=== PATIENT | male | born 2000 | race Caucasian/White ===

== ENCOUNTER 2023-05-28 18:28 | Inpatient (IN) | payer OTHER ==
[~2023-05-28] VITALS: Ht 175.3 cm; Wt 75.9 kg
[2023-05-28 19:59] LABS: BASOPHILS % (AUTO) 0.7 % (0.0-2.0); EOSINOPHILS % (AUTO) 2.7 % (1.0-6.0); HEMATOCRIT 44.9 % (41-53); LYMPHOCYTES # (AUTO) 2.2 K/uL (1.0-4.8); LYMPHOCYTES % (AUTO) 25.9 % (22.0-44.0); MEAN CORPUSCULAR HEMOGLOBIN 32.1 pg (26.0-34.0); MEAN CORPUSCULAR HGB CONC 33.4 G/dL (31.0-37.0); MEAN CORPUSCULAR VOLUME 96 fL (80-100); MONOCYTES # (AUTO) 0.9 K/uL (0.1-1.0); MONOCYTES % (AUTO) 10.2 % (2.0-9.0); NEUTROPHILS # (AUTO) 5.1 K/uL (1.8-7.7); NEUTROPHILS % (AUTO) 60.5 % (40.0-70.0); PLATELET COUNT (AUTO) 240 K/uL (150-450); RED BLOOD CELL COUNT(AUTO) 4.67 MIL/uL (4.50-5.90); RED CELL DISTRIBUTION WIDTH 13.1 % (11.5-14.5)
[2023-05-28 20:10] LABS: ANION GAP -4 mmol/L (8-16); CALCIUM, TOTAL 9.3 mg/dL (8.8-10.5); CARBON DIOXIDE 33 mmol/L (22-29); CHLORIDE 102 mmol/L (98-107); CREATININE 0.94 mg/dL (0.60-1.30); GLOMERULAR FILTR. RATE CALC > 60 mL/min (>60); GLUCOSE,RANDOM 96 mg/dL (70-110); POTASSIUM 4.3 mmol/L (3.5-5.1); SODIUM SERUM 131 mmol/L (136-145)
[2023-05-28 20:15] LABS: ALANINE AMINOTRANSFERASE 34 U/L (12-78); ALBUMIN 4.2 g/dL (3.4-5.0); ALKALINE PHOSPHATASE 76 U/L (46-116); ASPARTATE AMINOTRANSFERASE 16 U/L (15-37); BILIRUBIN,TOTAL 0.7 mg/dL (0.1-1.0); TOTAL PROTEIN, SERUM 7.3 g/dL (6.4-8.2)
[2023-05-28 20:18] LABS: AMPHET/METH SCREEN,URINE NEGATIVE (NEGATIVE); BARBITURATE SCREEN, URINE NEGATIVE (NEGATIVE); BENZODIAZEPINES SCREEN,URINE NEGATIVE (NEGATIVE); CANNABINOID SCREEN,URINE NEGATIVE (NEGATIVE); COCAINE SCREEN,URINE NEGATIVE (NEGATIVE); METHADONE SCREEN, URINE NEGATIVE (NEGATIVE); OPIATE SCREEN,URINE NEGATIVE (NEGATIVE); PHENCYCLIDINE SCREEN,URINE NEGATIVE (NEGATIVE)
[2023-05-28 20:28] LABS: COVID AG,FIA SOURCE NASOPHARYNGEAL
[2023-05-28] MEDS ORDERED: LORazepam 2 MG TABLET PO PRN (21:00)
[2023-05-29 03:50] VITALS: BP 116/70; PULSE 75; RESP 18; TEMP 98.2; O2SAT 99
[2023-05-29] MEDS ORDERED: MAGNESIUM HYDROXIDE SUSPENSION 30 ML UDCUP PO PRN (06:15)
[2023-05-29] MEDS ORDERED: LOPERAMIDE HCL 2 MG CAPSULE PO PRN (06:15)
[2023-05-29] MEDS ORDERED: MAG HYDROX/AL HYDROX/SIMETH ES 30 ML SUSPENSION UDCUP PO PRN (06:15)
[2023-05-29] MEDS ORDERED: PETROLATUM,WHITE 28 GM JELLY TP PRN (06:15)
[2023-05-29] MEDS ORDERED: DOCUSATE SODIUM 100 MG CAPSULE PO PRN (06:15)
[2023-05-29] MEDS ORDERED: IBUPROFEN 400 MG TABLET PO PRN (06:15)
[2023-05-29] MEDS ORDERED: GuaiFENesin/D-METHORPHAN [SUGAR-FREE] 200-20MG/10 ML SYRUP UDCUP PO PRN (06:15)
[2023-05-29] MEDS ORDERED: ONDANSETRON HCL 4 MG TABLET PO PRN (06:15)
[2023-05-29] MEDS ORDERED: NICOTINE 14 MG/24 HOUR PATCH TD PRN (06:15)
[2023-05-29] MEDS ORDERED: ALBUTEROL SULFATE HFA 90 MCG/PUFF 8 GM INHALER IH PRN (06:15)
[2023-05-29] MEDS ORDERED: ACETAMINOPHEN 325 MG TABLET PO PRN (06:15)
[2023-05-29] MEDS ORDERED: CloNIDine HCL 0.1 MG TABLET PO PRN (06:15)
[2023-05-29] MEDS ORDERED: SERTRALINE HCL 50 MG TABLET PO ONE (09:15)
[2023-05-29] MEDS: NALTREXONE HCL 50 MG TABLET PO SCH (09:47)
[2023-05-29] MEDS: ClonazePAM 0.5 MG TABLET PO SCH ×2 (09:47→17:14)
[2023-05-29 09:50] VITALS: BP 127/72; PULSE 63; RESP 17; TEMP 97.7; O2SAT 97
[2023-05-29] MEDS: METHYLPHENIDATE HCL 10 MG TABLET PO SCH (17:14)
[2023-05-29 17:17] VITALS: BP 124/69; PULSE 78; RESP 18; O2SAT 97
[2023-05-29] MEDS: ZOLPIDEM TARTRATE 10 MG TABLET PO PRN (20:45)
[2023-05-29] MEDS ORDERED: CloZAPine 25 MG TABLET PO SCH (21:00)
[2023-05-29 21:35] VITALS: BP 144/76; PULSE 93; RESP 18; TEMP 98; O2SAT 99
[2023-05-30] MEDS: METHYLPHENIDATE HCL 10 MG TABLET PO SCH ×2 (06:42→15:53)
[2023-05-30 08:09] LABS: HEMOGLOBIN A1C 4.9 % (3.8-5.6)
[2023-05-30 08:18] LABS: CHOL/HDL RATIO 2.2 (4.2-7.3); THYROID STIMULATING HORMONE 1.49 uIU/mL (0.36-3.74)
[2023-05-30] MEDS: NALTREXONE HCL 50 MG TABLET PO SCH (09:09)
[2023-05-30] MEDS: ClonazePAM 0.5 MG TABLET PO SCH ×2 (09:09→15:53)
[2023-05-30 13:55] VITALS: BP 122/70; PULSE 74; RESP 18; TEMP 97.7; O2SAT 100
[2023-05-30] MEDS: HALOPERIDOL 5 MG TABLET PO PRN (15:53)
[2023-05-30 20:30] VITALS: BP 111/67; PULSE 67; RESP 18; TEMP 98.1; O2SAT 99
[2023-05-30] MEDS ORDERED: CloZAPine 25 MG TABLET PO SCH (21:00)
[2023-05-30] MEDS: ZOLPIDEM TARTRATE 10 MG TABLET PO PRN (21:40)
[2023-05-31] MEDS: METHYLPHENIDATE HCL 10 MG TABLET PO SCH ×2 (06:20→16:28)
[2023-05-31] MEDS: ClonazePAM 0.5 MG TABLET PO SCH ×2 (08:08→16:28)
[2023-05-31] MEDS: HALOPERIDOL 5 MG TABLET PO PRN (08:08)
[2023-05-31] MEDS: NALTREXONE HCL 50 MG TABLET PO SCH (08:08)
[2023-05-31] MEDS ORDERED: PALIPERIDONE PALMITATE 156 MG/ML SYRINGE IM SCH (09:00)
[2023-05-31 14:26] VITALS: BP 111/75; PULSE 81; RESP 18; TEMP 97.9; O2SAT 96
[2023-05-31] MEDS ORDERED: CloZAPine 25 MG TABLET PO SCH (21:00)
[2023-05-31] MEDS: ZOLPIDEM TARTRATE 10 MG TABLET PO PRN (21:35)
[2023-05-31 22:09] VITALS: BP 126/82; PULSE 87; RESP 18; TEMP 98.4; O2SAT 99
[2023-06-01] MEDS: METHYLPHENIDATE HCL 10 MG TABLET PO SCH ×2 (06:38→18:14)
[2023-06-01 09:03] VITALS: BP 119/55; PULSE 63; RESP 18; TEMP 98.1; O2SAT 98
[2023-06-01] MEDS: ClonazePAM 0.5 MG TABLET PO SCH ×2 (10:15→18:14)
[2023-06-01] MEDS: NALTREXONE HCL 50 MG TABLET PO SCH (10:15)
[2023-06-01 20:26] VITALS: BP 124/86; PULSE 96; RESP 18; TEMP 98.4; O2SAT 97
[2023-06-01] MEDS: CloZAPine 100 MG TABLET PO SCH (20:50)
[2023-06-02] MEDS: METHYLPHENIDATE HCL 10 MG TABLET PO SCH ×2 (06:51→16:27)
[2023-06-02 08:56] VITALS: BP 124/82; PULSE 69; RESP 18; TEMP 97.6; O2SAT 99
[2023-06-02] MEDS: ClonazePAM 0.5 MG TABLET PO SCH ×2 (08:58→16:27)
[2023-06-02] MEDS: NALTREXONE HCL 50 MG TABLET PO SCH (08:58)
[2023-06-02] MEDS: CloZAPine 100 MG TABLET PO SCH (20:35)
[2023-06-02 20:45] VITALS: BP 133/83; PULSE 76; RESP 19; TEMP 98.1; O2SAT 98
[2023-06-02] MEDS: ZOLPIDEM TARTRATE 10 MG TABLET PO PRN (23:20)
[2023-06-03] MEDS: METHYLPHENIDATE HCL 10 MG TABLET PO SCH (06:04)
[2023-06-03 08:10] VITALS: BP 133/78; PULSE 83; RESP 18; TEMP 98; O2SAT 98
[2023-06-03] MEDS: NALTREXONE HCL 50 MG TABLET PO SCH (08:49)
[2023-06-03] MEDS: ClonazePAM 0.5 MG TABLET PO SCH (08:49)
== END 2023-06-03 10:30 | disposition home or self-care (01) | DRG 885 ==
LOC: EMS 18:46 → 3EI 21:00
PROVIDERS: ADMIT Psychiatry & Neurology Child & Adolescent Psychiatry; ATTEND Psychiatry & Neurology Child & Adolescent Psychiatry
DX: F25.0 Schizoaffective disorder, bipolar type (principal); E87.1 Hypo-osmolality and hyponatremia; R45.851 Suicidal ideations; Z20.822 Contact with and (suspected) exposure to COVID-19; G47.00 Insomnia, unspecified; F10.10 Alcohol abuse, uncomplicated; F19.10 Other psychoactive substance abuse, uncomplicated; F17.210 Nicotine dependence, cigarettes, uncomplicated; F41.9 Anxiety disorder, unspecified
CPT/HCPCS: 80053; 80061; 80307; 83036; 84443; 85025; 87081; 93005; 99285; G0480; J3535